=== PATIENT | female | born 1990 | race Hispanic/Latino ===

== ENCOUNTER → 2018-08-14 16:07 | Outpatient (CLI) | payer MEDICAID, SELFPAY ==
[2018-08-14 20:31] LABS: Chlamydia Trachomatis by PCR Negative (Negative); Neisserai gonorrhoeae by PCR Negative (Negative); Probe Check PASS; Sample Adequacy Control PASS; Specimen Processing Control PASS
[2018-08-14 21:26] LABS: Probe Check PASS; Sample Adequacy Control PASS; Specimen Processing Control PASS; Trichomonas Vag DNA by PCR Negative (Negative)
[2018-08-18 14:18] LABS: HPV Reflexed? NOT INDICATED
== END ==
PROVIDERS: Visit Provider Obstetrics & Gynecology
DX: Z12.4 Encounter for screening for malignant neoplasm of cervix (principal); Z11.3 Encounter for screening for infections with a predominantly sexual mode of transmission
CPT/HCPCS: 87491; 87591; 87661; 88175; G0145

== ENCOUNTER → 2018-08-17 13:52 | Outpatient (CLI) | payer MEDICAID, SELFPAY ==
--- NOTE | 2018-08-17 13:55 | US_ITS ---
STUDY: ULTRASOUND OF THE FEMALE PELVIS - COMPLETE REASON FOR EXAM: Female, 27 years old. Intermittent pelvic pain LMP: 08/08/2018 TECHNIQUE: Transabdominal and endovaginal imaging performed with endovaginal imaging needed for incomplete visualization of the endometrial complex. TECHNICAL QUALITY: Adequate. COMPARISON: None. FINDINGS: The uterus is anteverted and is in a midline position. The uterus measures 8.7 x 4.8 x 3.5 cm. Normal uterine cervix. The endometrium measures mm in thickness, and is . There is no demonstrated endometrial mass. There is no demonstrated myometrial mass. I.U.D. - The patient does not have an I.U.D. The right ovary is visualized. The right ovary measures 3.2 x 2.9 x 2.1 cm. A simple right ovarian cyst measures up to 2.1 cm without solid component. Small follicles are noted. There is no visualized right adnexal mass or complex lesion. There is normal arterial and normal venous vascularity. The left ovary is visualized. The left ovary measures 3.2 x 2.9 x 2.1 cm. Adjacent to the left ovary, there is a 3.0 x 2.8 x 1.6 cm nearly anechoic cyst without septations or solid component. No solid masses. There is normal arterial and normal venous vascularity. There is no fluid in the cul-de-sac. Visualized urinary bladder is unremarkable. Polycystic ovary disease: No. US/Pelvic (Non ) IMPRESSION: 1. Left adnexal cyst measuring up to 3.0 cm without significant complexity or solid component. No evidence of torsion. No pelvic free fluid. 2. 2.1 cm right ovarian small cyst versus dominant follicle. Electronically Signed: Baldemar Betancourt MD at 8:47 EDT , Service support ,
--- NOTE | 2018-08-17 14:09 | US_ITS ---
STUDY: ULTRASOUND OF THE FEMALE PELVIS - COMPLETE REASON FOR EXAM: Female, 27 years old. Intermittent pelvic pain LMP: 08/08/2018 TECHNIQUE: Transabdominal and endovaginal imaging performed with endovaginal imaging needed for incomplete visualization of the endometrial complex. TECHNICAL QUALITY: Adequate. COMPARISON: None. FINDINGS: The uterus is anteverted and is in a midline position. The uterus measures 8.7 x 4.8 x 3.5 cm. Normal uterine cervix. The endometrium measures mm in thickness, and is . There is no demonstrated endometrial mass. There is no demonstrated myometrial mass. I.U.D. - The patient does not have an I.U.D. The right ovary is visualized. The right ovary measures 3.2 x 2.9 x 2.1 cm. A simple right ovarian cyst measures up to 2.1 cm without solid component. Small follicles are noted. There is no visualized right adnexal mass or complex lesion. There is normal arterial and normal venous vascularity. The left ovary is visualized. The left ovary measures 3.2 x 2.9 x 2.1 cm. Adjacent to the left ovary, there is a 3.0 x 2.8 x 1.6 cm nearly anechoic cyst without septations or solid component. No solid masses. There is normal arterial and normal venous vascularity. There is no fluid in the cul-de-sac. Visualized urinary bladder is unremarkable. Polycystic ovary disease: No. US/Transvaginal Non- IMPRESSION: 1. Left adnexal cyst measuring up to 3.0 cm without significant complexity or solid component. No evidence of torsion. No pelvic free fluid. 2. 2.1 cm right ovarian small cyst versus dominant follicle. Electronically Signed: Baldemar Betancourt MD at 8:47 EDT , Service support ,
== END ==
PROVIDERS: Referring Provider Obstetrics & Gynecology; Visit Provider Obstetrics & Gynecology
DX: N83.202 Unspecified ovarian cyst, left side (principal)
CPT/HCPCS: 76830; 76856; 93976

== ENCOUNTER 2018-11-28 10:01 | Emergency (ER) | payer MEDICAID, SELFPAY ==
[2018-11-28 10:02] VITALS: BP 121/79; PULSE 80; RESP 18; TEMP 36.6; O2SAT 99; BMI 34.9
[2018-11-28 10:12] VITALS: TEMP 36.6
--- NOTE | 2018-11-28 10:14 | ED.VISSUMM ---
- ER Visit Summary Date of Service: 11/28/18 Chief Complaint: Urinary symptoms History of Present Illness: The patient is a 27 F G1, P1, Ab0 who presents with dysuria, frequency and urgency that started yesterday. She reports suprapubic discomfort and midline low back pain. She complains of subjective fever with chills. She denies nausea, vomiting or diarrhea. She has no other symptoms. She is presently on her menses. Physical Examination: Vital signs noted. She is not apparent distress. HEENT is grossly unremarkable. Heart is regular. She is in no respiratory distress. She has suprapubic discomfort to palpation. There is no CVA tenderness noted. Test Results: Urinalysis reveals leukoesterase and blood negative nitrites. Microscopic reveals 50-100 WBCs. No bacteria noted. Emergency Department Course and Treatment: Will obtain UA. Treatment Plan: Macrobid 100 mg twice daily times 5 days and Pyridium Disposition: Discharged home with prescription for Macrobid and Pyridium Impression: Acute nonhemorrhagic cystitis This note was generated with [employer] dictation software. It may contain incorrect words, spelling, and punctuation that were not noted in review of the chart prior to signing ED Disposition - Plan for ED Patient: Disposition: Home or Assisted Living Chief Complaint: Complaint Instructions: ED UTI Cystitis Female Prescriptions: Nitrofurantoin Macrocrystals [Macrobid] 100 mg PO Q12 #10 cap Phenazopyridine HCl [Pyridium] 200 mg PO TID #10 tab Referrals: Care Physician,No Primary [Primary Care Provider] - Amelie Kumar MD [STAFF PHYSICIAN] - 3-5 Days if not improving
[2018-11-28 11:33] LABS: Bacteria 0 SEEN /hpf (None Seen); Mucous, Urine 0 SEEN /hpf (<or=2+)
[2018-11-28 11:35] LABS: Color, Urine Yellow (Yellow); Glucose, Dipstick Normal (Normal); Ketone-Dipstick Negative (Negative); Leukocyte Esterase-Dipstick 500 /ul (Negative); Nitrite-Dipstick Negative (Negative); Occult Blood-Urine 25 /ul (Negative); Protein-Dipstick Negative (Negative); Specific Gravity, Urine 1.005 (1.002-1.030); Urine Bilirubin Dipstick Negative (Negative); Urine Clarity Clear (Clear); Urine Urobilinogen Normal (Normal)
[2018-11-28 11:43] LABS: Red Blood Cells-Urine 0-5 SEEN /hpf (0-5); Squamous Epithelial Cells - UA 0-5 SEEN /hpf (5-10); White Blood Cells 50-100 SEEN /hpf (0-5)
[2018-11-28] MEDS: Nitrofurantoin Macrocrystals 100 MG Capsule PO (12:39)
[2018-11-28] MEDS: Phenazopyridine 95 MG Tablet 190 MG PO (12:39)
[2018-11-28 12:44] VITALS: BP 96/74; PULSE 63; RESP 14
--- OUTSIDE RECORDS SUMMARY | 2019-01-30 13:37 | XMS RPT_ITS ---
:1990 Author Organization OHIP Care Team Providers Name Role Phone TEN CAVANAUGH Admitting Unavailable TEN CAVANAUGH Attending Unavailable AA UNKNOWN PCP, UNKNOWN Primary Care Unavailable MARISSA LEE) Attending Unavailable MARISSA LEE) Referring Unavailable MARISSA LEE) Attending Unavailable MARISSA LEE) Referring Unavailable PROVIDER, UNKNOWN Referring Unavailable No, PCP Primary Care Unavailable Alexis Peres Attending Unavailable PROVIDER, UNKNOWN Referring Unavailable No, PCP Primary Care Unavailable Fan Cabrera Attending Unavailable Tod Tapia Attending Unavailable PROVIDER, UNKNOWN Referring Unavailable No, PCP Primary Care Unavailable PROVIDER, UNKNOWN Referring Unavailable No, PCP Primary Care Unavailable AUR[facility]A STRAUSS Attending Unavailable PROVIDER, UNKNOWN Referring Unavailable No, PCP Primary Care Unavailable PROVIDER, UNKNOWN Attending Unavailable PROVIDER, UNKNOWN Referring Unavailable No, PCP Primary Care Unavailable Dominic Miranda Attending Unavailable Primay Care Physicia, No Primary Care Unavailable Wilkerson, Víctor Attending Unavailable Jean-Baptiste-Chavo, Summer Attending Unavailable Primay Care Physicia, No Primary Care Unavailable Jean-Baptiste-Chavo, Summer Attending Unavailable Jean-Baptiste-Chavo, Summer Referring Unavailable Primay Care Physicia, No Primary Care Unavailable PROBLEMS PROBLEMS DATE TYPE CONDITION / CODE ATTENDING STATUS SOURCE 08/17/2018 Unknown N83.202 - José Active [facility] Unspecified ovarian [facility] cyst, left side / Hospital N83.202(ICD-10) Repository 08/14/2018 Unknown Z12.4 - Encounter José Active [employer] for screening for [facility] malignant neoplasm Hospital of cervix / Repository Z12.4(ICD-10) 08/14/2018 Unknown Z11.3 - Encounter José Active [facility] for screening for [facility] infections with a Hospital predominantly sexual Repository mode of transmission / Z11.3(ICD-10) 07/15/2018 Admitting Anxiety disorder, Dominic Miranda [facility] Diagnosis unspecified / System F41.9(ICD-10) Repository 07/15/2018 Admitting Major depressive Dominic Miranda [facility] Diagnosis disorder, single System episode, unspecified Repository / F32.9(ICD-10) 07/15/2018 Admitting Unspecified mood Dominic Miranda Active [facility] Diagnosis [affective] disorder System / F39(ICD-10) Repository 07/15/2018 Admitting Nicotine dependence, Dominic Miranda Active [facility] Diagnosis cigarettes, System uncomplicated / Repository F17.210(ICD-10) 07/15/2018 Admitting Acquired absence of Dominic Miranda [facility] Diagnosis other specified System parts of digestive Repository tract / Z90.49(ICD-10) 07/15/2018 Admitting Suicidal ideations / Dominic Miranda Active [facility] Diagnosis R45.851(ICD-10) System Repository 03/29/2018 Admitting Nicotine dependence, MATEOSDARLEEN, Active [facility] Diagnosis unspecified, [facility] uncomplicated / Repository F17.200(ICD-10) 03/29/2018 Admitting Laceration w/o ELIZABETHOSKY, Active [facility] Diagnosis foreign body of [facility] System right forearm, init Repository encntr / S51.811A(ICD-10) 03/29/2018 Admitting halfway (current) MATEOSKY, [facility] Diagnosis use of non-steroidal [facility] System non-inflam (NSAID) / Repository Z79.1(ICD-10) 02/08/2018 Active Major depressive NA Active [place] disorder, recurrent [facility] severe without [place] psychotic features / Repository F33.2(ICD-10) 02/08/2018 Active Generalized anxiety NA Active [place] disorder / [facility] F41.1(ICD-10) [place] Repository 01/17/2018 Admitting Unspecified Deborah, Active [facility] Diagnosis abdominal pain / [facility] R10.9(ICD-10) Repository 01/17/2018 Admitting Periumbilical pain / Deborah, Active [facility] Diagnosis R10.33(ICD-10) [facility] Repository 01/17/2018 Admitting Urinary tract Deborah, Active [facility] Diagnosis infection, site not [facility] specified / Repository N39.0(ICD-10) 01/17/2018 Admitting Unspecified ovarian Deborah, Active [facility] Diagnosis cyst, left side / [facility] N83.202(ICD-10) Repository 01/16/2018 Admitting Strain of muscle, Alexis Peres Active [facility] Diagnosis fascia and tendon of System lower back, init / Repository S39.012A(ICD-10) 01/16/2018 Admitting Overexertion from Alexis Peres Active [facility] Diagnosis prolonged static or System awkward postures, Repository init / X50.1XXA(ICD-10) 01/16/2018 Admitting Dorsalgia, Alexis Peres Active [facility] Diagnosis unspecified / System M54.9(ICD-10) Repository 01/18/2018 Active LOW BACK PAIN / BLANDA, Active [facility] M54.5(ICD-10) [facility] Repository 01/18/2018 Principle SACROCOCCYGEAL BLANDA, Active [facility] Diagnosis DISORDERS [facility] / [facility] M53.3(ICD-10) Repository PROCEDURES PROCEDURES No Procedure Records FoundRESULTS RESULTS EMERGENCY DEPARTMENT Observed: 11/28/2018 Status: F Source: [place] SUMMARY 12:10 PM [facility] REPOSITORY [facility] Medical Records Department [address] [place] [address] Emergency Department Summary 11/28/18 1014 MR#: [id number] Acct: [id number] Name: LOIS LA Rep #: [id number] : 1990 27 From: Víctor Wilkerson MD PCP: Kobi Physician, No Primary Status: REG ER - ER Visit Summary Date of Service: 11/28/18 Chief Complaint: Urinary symptoms History of Present Illness: The patient is a 27 F G1, P1, Ab0 who presents with dysuria, frequency and urgency that started yesterday. She reports suprapubic discomfort and midline low back pain. She complains of subjective fever with chills. She denies nausea, vomiting or diarrhea. She has no other symptoms. She is presently on her menses. Physical Examination: Vital signs noted. She is not apparent distress. HEENT is grossly unremarkable. Heart is regular. She is in no respiratory distress. She has suprapubic discomfort to palpation. There is no CVA tenderness noted. Test Results: Urinalysis reveals leukoesterase and blood negative nitrites. Microscopic reveals 50-100 WBCs. No bacteria noted. Emergency Department Course and Treatment: Will obtain UA. Treatment Plan: Macrobid 100 mg twice daily times 5 days and Pyridium Disposition: Discharged home with prescription for Macrobid and Pyridium Impression: Acute nonhemorrhagic cystitis This note was generated with [employer]Matrix dictation software. It may contain incorrect words, spelling, and punctuation that were not noted in review of the chart prior to signing ED Disposition - Plan for ED Patient: Disposition: Home or Assisted Living Chief Complaint: Complaint Instructions: ED UTI Cystitis Female Prescriptions: Nitrofurantoin Macrocrystals [Macrobid] 100 mg PO Q12 #10 cap Phenazopyridine HCl [Pyridium] 200 mg PO TID #10 tab Referrals: Care Physician,No Primary [Primary Care Provider] - Amelie Kumar MD [STAFF PHYSICIAN] - 3-5 Days if not improving What to do if you have Problems For any increased pain, shortness of breath, bleeding, nausea or vomiting, chest pain, or any unexpected problems, contact your Primary Care Provider. Call [facility] ([phone]) or report to the closest Emergency Room. Call 911 if necessary. 11/28/18 1210 <Electronically signed by Víctor Wilkerson MD> Date Víctor Wilkerson MD Cosigner Signature (If Indicated): Date CC: No Primary Care Physician; Amelie Kumar MD URINALYSIS, COMPLETE Collected: 11/28/2018 Status: F Source: LANE 11:25 AM [facility] REPOSITORY Order Comment: Order Date: 11/28/18 How was Urine Obtained? CLEAN CATCH TYPE CODE TESTS RESULT OUT OF RANGE REFERENCE UNITS LAB L400.3000 Yellow COLOR Normal Yellow LAB L400.3050 Clear Normal CLARITY Clear LAB L400.3200 Normal mg/dl Normal GLUCOSE, UR Normal LAB L400.3300 Negative mg/dL Normal BILIRUBIN URINE Negative LAB L400.3400 Negative mg/dl Normal KETONE UR Negative LAB L400.3465 1.002-1.030 Normal SP.GR. DIPSTX 1.005 LAB L400.3550 5.0 - 8.0 pH UR Normal 7.0 LAB L400.3600 Negative mg/dl PROT Normal DIPSTX Negative LAB L400.3700 Normal mg/dl Normal UROBILI Normal LAB L400.3750 Negative Normal NITRITE UR Negative LAB L400.3780 Negative /ul High 25 OCCULT BLOOD-UR LAB L400.3800 Negative /ul High LEUK ESTERASE 500 LAB L400.4050 0-5 /hpf WBC Normal 50-100 SEEN LAB L400.4100 0-5 /hpf Normal RBC-UA 0-5 SEEN LAB L400.4150 5-10 /hpf SQUAM Normal EPI 0-5 SEEN LAB L400.4300 None Seen /hpf 0 Normal BACTERIA SEEN LAB L400.4350 <or=2+ /hpf 0 Normal MUCUS, URINE SEEN Performed By: #### L400.0001 #### [facility] [address] [place], [address] TRANSVAGINAL Observed: 08/17/2018 Status: F Source: LANE NON- 2:09 PM [facility] REPOSITORY [facility] Imaging Services [address] [place] [address] Transvaginal Non- MR#: [id number] Acct: [id number] Name: LOIS LA Rep #: [id number] : 1990 F 27 From: Baldemar Betancourt MD PCP: Care Physician, No Primary Status: REG CLI Study: Transvaginal Non- Date of Exam: 08/17/18 Exam# [id number] Ordering Dr: Amelie Mcghee MD ADDENDUM by Baldemar Betancourt MD on 08/25/18 at 0758 ADDENDUM The endometrium measures 8 mm in thickness, and is hyperechoic. Electronically Signed: Baldemar Betancourt MD at 7:58 EDT , Service support , 08/25/18 0758 Date cc: No Primary Care Physician; Amelie Kumar MD * Signed ADDENDUM by Baldemar Betancourt MD on 08/25/18 at 0758 US/Transvaginal Non- 08/25/18 0805 Date cc: No Primary Care Physician; Amelie Kumar MD * Signed STUDY: ULTRASOUND OF THE FEMALE PELVIS - COMPLETE REASON FOR EXAM: Female, 27 years old. Intermittent pelvic pain LMP: 08/08/2018 TECHNIQUE: Transabdominal and endovaginal imaging performed with endovaginal imaging needed for incomplete visualization of the endometrial complex. TECHNICAL QUALITY: Adequate. COMPARISON: None. FINDINGS: The uterus is anteverted and is in a midline position. The uterus measures 8.7 x 4.8 x 3.5 cm. Normal uterine cervix. The endometrium measures mm in thickness, and is . There is no demonstrated endometrial mass. There is no demonstrated myometrial mass. I.U.D. - The patient does not have an I.U.D. The right ovary is visualized. The right ovary measures 3.2 x 2.9 x 2.1 cm. A simple right ovarian cyst measures up to 2.1 cm without solid component. Small follicles are noted. There is no visualized right adnexal mass or complex lesion. There is normal arterial and normal venous vascularity. The left ovary is visualized. The left ovary measures 3.2 x 2.9 x 2.1 cm. Adjacent to the left ovary, there is a 3.0 x 2.8 x 1.6 cm nearly anechoic cyst without septations or solid component. No solid masses. There is normal arterial and normal venous vascularity. There is no fluid in the cul-de-sac. Visualized urinary bladder is unremarkable. Polycystic ovary disease: No. US/Transvaginal Non- IMPRESSION: 1. Left adnexal cyst measuring up to 3.0 cm without significant complexity or solid component. No evidence of torsion. No pelvic free fluid. 2. 2.1 cm right ovarian small cyst versus dominant follicle. Electronically Signed: Baldemar Betancourt MD at 8:47 EDT , Service support , CC: No Primary Care Physician; Amelie Kumar MD Bus Escort: Signed PELVIC (NON ) Observed: 08/17/2018 Status: F Source: LANE 1:55 PM [facility] REPOSITORY [facility] [place] [address] Pelvic (Non ) MR#: [id number] Acct: [id number] Name: LOIS LA Rep #: [id number] : 1990 F 27 From: Baldemar Betancourt MD PCP: Care Physician, No Primary Status: REG CLI Study: Pelvic (Non ) Date of Exam: 08/17/18 Exam# [id number] Ordering Dr: Amelie Mcghee MD ADDENDUM by Baldemar Betancourt MD on 08/25/18 at 0757 ADDENDUM The endometrium measures 8 mm in thickness, and is hyperechoic. Electronically Signed: Baldemar Betancourt MD at 7:58 EDT , Service support , 08/25/18 0758 Date cc: No Primary Care Physician; Amelie Kumar MD * Signed ADDENDUM by Baldemar Betancourt MD on 08/25/18 at 0758 US/Pelvic (Non ) 08/25/18 08 Date cc: No Primary Care Physician; Amelie Kumar MD * Signed STUDY: ULTRASOUND OF THE FEMALE PELVIS - COMPLETE REASON FOR EXAM: Female, 27 years old. Intermittent pelvic pain LMP: 08/08/2018 TECHNIQUE: Transabdominal and endovaginal imaging performed with endovaginal imaging needed for incomplete visualization of the endometrial complex. TECHNICAL QUALITY: Adequate. COMPARISON: None. FINDINGS: The uterus is anteverted and is in a midline position. The uterus measures 8.7 x 4.8 x 3.5 cm. Normal uterine cervix. The endometrium measures mm in thickness, and is . There is no demonstrated endometrial mass. There is no demonstrated myometrial mass. I.U.D. - The patient does not have an I.U.D. The right ovary is visualized. The right ovary measures 3.2 x 2.9 x 2.1 cm. A simple right ovarian cyst measures up to 2.1 cm without solid component. Small follicles are noted. There is no visualized right adnexal mass or complex lesion. There is normal arterial and normal venous vascularity. The left ovary is visualized. The left ovary measures 3.2 x 2.9 x 2.1 cm. Adjacent to the left ovary, there is a 3.0 x 2.8 x 1.6 cm nearly anechoic cyst without septations or solid component. No solid masses. There is normal arterial and normal venous vascularity. There is no fluid in the cul-de-sac. Visualized urinary bladder is unremarkable. Polycystic ovary disease: No. US/Pelvic (Non ) IMPRESSION: 1. Left adnexal cyst measuring up to 3.0 cm without significant complexity or solid component. No evidence of torsion. No pelvic free fluid. 2. 2.1 cm right ovarian small cyst versus dominant follicle. Electronically Signed: Baldemar Betancourt MD at 8:47 EDT , Service support , CC: No Primary Care Physician; Amelie Kumar MD Bus Escort: Signed CT/NG [facility] BY PCR Collected: 08/14/2018 Status: F Source: LANE 3:00 PM [facility] REPOSITORY TYPE CODE TESTS RESULT OUT OF RANGE REFERENCE UNITS LAB L8200.2100 Negative Normal Chlam Negative Trac PCR LAB L8200.2200 Negative Normal NG by Negative PCR Performed By: #### L8200.2000, L8200.3000 #### [facility] [address] [place], [address] TRICHOMONAS VAGINALIS Collected: 08/14/2018 Status: F Source: LANE WCH/PCR 3:00 PM [facility] REPOSITORY TYPE CODE TESTS RESULT OUT OF RANGE REFERENCE UNITS LAB L8200.3100 Negative Normal TV RESULT Negative Performed By: #### L8200.2000, L8200.3000 #### [facility] [address] [place], [place], [address] PAP I-G W/RFX Collected: 08/14/2018 Status: F Source: LANE HRHPV-APTIMA 3:00 PM [facility] REPOSITORY Order Comment: CYTOLOGY INFORMATION: - CLINICAL INFORMATION: - DATE LMP/MENOPAUSE: 08/08/18 LMP - COLLECTION VIAL: Thin Prep Vial - SANITATION ASSOCIATE SOURCE: CERVICAL/ENDOCERVICAL - COLLECTION TECHNIQUE: BRUSH/SPATULA Specimen Comment: [id number] Specimen Comment: Source.............Cervix;Endocervix Specimen Comment: LMP / Prev Treat...[id number]=[id number] Specimen Comment: No. of containers..01 ThinPrep Vial TYPE CODE TESTS RESULT OUT OF RANGE REFERENCE UNITS LAB L7400.0800 . Normal DIAGN Comment Result Comment: NEGATIVE FOR INTRAEPITHELIAL LESION AND MALIGNANCY. LAB L7400.0900 . Normal ADEQ Comment Result Comment: Satisfactory for evaluation. Endocervical and/or squamous metaplastic cells (endocervical component) are present. LAB L7400.1400 . Normal PERFORM Comment Result Comment: Georgiana Lucio, Software Applications Engineer (ASCP) LAB L7400.2575 . Normal TEST METHOD Comment Result Comment: This liquid based ThinPrep(R) pap test was screened with the use of an image guided system. LAB L7400.2600 . Normal . COMM LAB L7400.2700 . Normal PAPSMR Comment Result Comment: The Pap smear is a screening test designed to aid in the detection of premalignant and malignant conditions of the uterine cervix. It is not a diagnostic procedure and should not be used as the sole means of detecting cervical cancer. Both false-positive and false-negative reports do occur. LAB L7400.2800 . Normal HPV RFLX Comment Result Comment: The HPV DNA reflex criteria were not met with this specimen result therefore, no HPV testing was performed. Performed at: - [facility] [id number] Deputy Building Guard: Joan Olivera MD, Phone: [phone] Performed By: #### L7400.0353 #### [facility] (refer to report for specific site) refer to report for address and phone number HEMOGRAM W/ AUTODIFF Collected: 07/15/2018 Status: F Source: [email or web address] 10:32 PM SYSTEM REPOSITORY TYPE CODE TESTS RESULT OUT OF REFERENCE UNITS RANGE LAB IWBC 3.6-10.7 10*3/uL WBC Normal 8.1 LAB RBC 3.80-5.20 10*6/uL RBC Normal 5.04 LAB HGB 11.7-16.0 g/dL Hemoglobin Normal 12.5 LAB HCT 35.0-47.0 % Hematocrit Normal 38.7 LAB MCV 79.0-98.0 fL Low MCV 76.9 LAB MCH 26.0-34.0 pg Low MCH 24.9 LAB MCHC 32.0-36.0 % MCHC Normal 32.4 LAB RDW 11.5-14.5 % RDW High 15.4 LAB PLT 140-440 10*3/uL Platelet Normal 220 LAB MPV 7.4-10.4 fL MPV Normal 10.0 LAB GRAN% 40.0-80.0 % Granulocytes Normal 78.0 LAB LYMP% 20.0-40.0 % Low Lymphocytes 12.5 LAB MONO% 2.0-10.0 % Monocytes Normal 7.6 LAB EOS% 1.0-6.0 % Eosinophils Normal 1.3 LAB BAS% 0.0-2.0 % Basophils Normal 0.6 LAB ANC 1.8-7.0 10*3/uL Abs Normal Neutrophile Cnt 6.3 LAB ALC 1.0-4.3 10*3/uL Abs Lymph Cnt Normal 1.0 LAB AMC 0.0-0.8 10*3/uL Abs Monocyte Normal Cnt 0.6 LAB AEC 0.0-0.5 10*3/uL Abs Eosin Cnt Normal 0.1 LAB ABC 0.0-0.2 10*3/uL Abs Baso Cnt Normal 0.1 Performed By: #### HEMDF, CMP3, ETOH4 #### [facility] [address] [place] [phone] COMP METABOLIC PANEL Collected: 07/15/2018 Status: F Source: [email or web address] 10:32 PM SYSTEM REPOSITORY TYPE CODE TESTS RESULT OUT OF RANGE REFERENCE UNITS LAB NA3 137-145 mmol/L Sodium Normal 143 LAB K3 3.5-5.1 mmol/L Low Potassium 3.4 LAB CL3 98-107 mmol/L Chloride Normal 106 LAB CO23 22-30 mmol/L High Carbon Dioxide 32 LAB ANIN3 NA Anion Gap 5 LAB GLUC3 70-100 mg/dL Glucose Normal 97 LAB BUN3 7-20 mg/dL Urea Normal Nitrogen 9 LAB CRET3 0.52-1.25 mg/dL Normal Creatinine 0.63 LAB GF3BR >60 mL/min eGFR > 60.0 LAB GF3WR >60 mL/min eGFR OTHER > 60.0 Result Comment: Source- MDRD equation with creatinine calibration to IDMS(NKDEP) eGFR not recommended for drug dose adjustment LAB CA3 8.4-10.4 mg/dL Calcium Normal 8.9 LAB ALB3 3.5-5.0 g/dL Albumin, Serum Normal 4.1 LAB TP3 6.3-8.2 g/dL Total Protein Normal 6.8 LAB BILT3 0.2-1.3 mg/dL Low Bilirubin,Total 0.1 LAB ALKP3 38-126 U/L Alkaline Normal Phosphatase 72 LAB ALT3 13-69 U/L ALT (SGPT) Normal 23 LAB AST3 15-46 U/L AST (SGOT) Normal 24 Performed By: #### HEMDF, CMP3, ETOH4 #### [facility] [address] [place] [phone] ETHANOL SERUM/PLASMA Collected: 07/15/2018 Status: F Source: [email or web address] 10:32 PM SYSTEM REPOSITORY TYPE CODE TESTS RESULT OUT OF RANGE REFERENCE UNITS LAB ETOH3 0.000-0.010 g/dL Normal < 0.010 Ethanol-Seru m/Plasma Result Comment: NOTE: This result is for medical treatment only. Analysis performed using non-forensic procedures. Performed By: #### HEMDF, CMP3, ETOH4 #### [facility] [address] [place] [address] HCG,URINE QUAL Collected: 07/15/2018 Status: F Source: [email or web address] 10:32 PM SYSTEM REPOSITORY TYPE CODE TESTS RESULT OUT OF REFERENCE UNITS RANGE LAB HCGUR Negative NA Negative HCG,Urine Qual Result Comment: is the most common reason for HCG in urine, although choriocarcinoma, hydatidiform mole, and certain nontropho- blastic malignancies also result in detectable urinary HCG levels. Sensitivity = 20mIU/mL. Performed By: #### HCGUR, DRGA4 #### [facility] [address] [place] [phone] DRUGS OF ABUSE Collected: 07/15/2018 Status: F Source: [email or web address] 10:32 PM SYSTEM REPOSITORY TYPE CODE TESTS RESULT OUT OF REFERENCE UNITS RANGE LAB AMP3 NA Amphetamines, Ur Negative LAB BARB3 NA Barbiturates, Ur Negative LAB BENZ3 NA Benzodiazepines, Negative Ur LAB COC3 NA Cocaine, Ur Negative LAB METH3 NA Methadone, Ur Negative LAB OPI3 NA Opiates, Ur Negative LAB OXY3 NA Oxycodone/Oxymorph Negative ine,Ur LAB PCP3 NA Phencyclidine (PCP), Ur Negative Result Comment: The expected value for all of the drugs listed above is Negative. The following drugs or drug groups have been screened for by Immunoassay at the following thresholds: Amphetamine class (1000 ng/mL), Barbiturates (200 ng/mL), Benzodiazepines (200 ng/mL), Cocaine (300 ng/mL), Methadone (300 ng/mL), Opiates (300 ng/mL), Oxycodone (100 ng/mL), and PCP (25 ng/mL). NOTE: These results are for medical treatment only. Analysis performed using non-forensic procedures. Performed By: #### HCGUR, DRGA4 #### [facility] [address] [phone] LIPID PANEL Collected: 04/02/2018 Status: F Source: [email or web address] 5:58 AM SYSTEM REPOSITORY TYPE CODE TESTS RESULT OUT OF REFERENCE UNITS RANGE LAB 3CHOL < 200 mg/dL Cholesterol Normal 127 LAB 3TRIG <150 mg/dL Triglyceride Normal 83 LAB HDLC 40-60 mg/dL HDL Normal Cholesterol 40 LAB LDL4 <100 mg/dL Low Density Normal Lipoprotein 70 LAB CHLHD NA Chol/HDL 3 Result Comment: Ref Range: < 3 Low Risk for CHD 3-6 Mod Risk for CHD > 6 High Risk for CHD Performed By: #### KIMMIED2, HA1C2 #### [facility] [address] [place] [address] HEMOGLOBIN A1C Collected: 04/02/2018 Status: F Source: [email or web address] 5:58 AM SYSTEM REPOSITORY TYPE CODE TESTS RESULT OUT OF RANGE REFERENCE UNITS LAB A1C2 4.0-5.7 % Normal Hemoglobin A1C 5.3 Result Comment: --HgbA1C levels may not be accurate in patients who have renal disease, received recent blood transfusions, are anemic, or who have dyshemoglobinemia. LAB EAG2 mg/dL Estimated Avg Glucose 105 Performed By: #### KIMMIED2, HA1C2 #### [facility] [address] [phone] HEMOGRAM W/ AUTODIFF Collected: 04/01/2018 Status: F Source: [email or web address] 10:46 AM SYSTEM REPOSITORY TYPE CODE TESTS RESULT OUT OF REFERENCE UNITS RANGE LAB IWBC 3.6-10.7 10*3/uL WBC Normal 5.1 LAB RBC 3.80-5.20 10*6/uL RBC Normal 4.64 LAB HGB 11.7-16.0 g/dL Hemoglobin Normal 12.0 LAB HCT 35.0-47.0 % Hematocrit Normal 36.7 LAB MCV 79.0-98.0 fL MCV Normal 79.2 LAB MCH 26.0-34.0 pg Low MCH 25.8 LAB MCHC 32.0-36.0 % MCHC Normal 32.6 LAB RDW 11.5-14.5 % RDW High 15.3 LAB PLT 140-440 10*3/uL Platelet Normal 212 LAB MPV 7.4-10.4 fL MPV Normal 10.4 LAB GRAN% 40.0-80.0 % Granulocytes Normal 59.5 LAB LYMP% 20.0-40.0 % Lymphocytes Normal 25.7 LAB MONO% 2.0-10.0 % Monocytes High 11.8 LAB EOS% 1.0-6.0 % Eosinophils Normal 1.6 LAB BAS% 0.0-2.0 % Basophils Normal 1.4 LAB ANC 1.8-7.0 10*3/uL Abs Normal Neutrophile Cnt 3.0 LAB ALC 1.0-4.3 10*3/uL Abs Lymph Cnt Normal 1.3 LAB AMC 0.0-0.8 10*3/uL Abs Monocyte Normal Cnt 0.6 LAB AEC 0.0-0.5 10*3/uL Abs Eosin Cnt Normal 0.1 LAB ABC 0.0-0.2 10*3/uL Abs Baso Cnt Normal 0.1 Performed By: #### HEMDF, BMP3, ETOH4 #### [facility] [address] [place] [phone] BASIC METABOLIC PANEL Collected: 04/01/2018 Status: F Source: [email or web address] 10:46 AM SYSTEM REPOSITORY TYPE CODE TESTS RESULT OUT OF RANGE REFERENCE UNITS LAB NA3 137-145 mmol/L High Sodium 147 LAB K3 3.5-5.1 mmol/L Low Potassium 3.4 LAB CL3 98-107 mmol/L High Chloride 109 LAB CO23 22-30 mmol/L Carbon Normal Dioxide 25 LAB ANIN3 NA Anion Gap 14 LAB GLUC3 70-100 mg/dL Glucose Normal 84 LAB BUN3 7-20 mg/dL Low Urea Nitrogen 6 LAB CRET3 0.52-1.25 mg/dL Normal Creatinine 0.56 LAB GF3BR >60 mL/min eGFR > 60.0 LAB GF3WR >60 mL/min eGFR OTHER > 60.0 Result Comment: Source- MDRD equation with creatinine calibration to IDMS(NKDEP) eGFR not recommended for drug dose adjustment LAB CA3 8.4-10.2 mg/dL Normal Calcium 8.7 Performed By: #### HEMDF, BMP3, ETOH4 #### [facility] [address] [place] [phone] ETHANOL SERUM/PLASMA Collected: 04/01/2018 Status: F Source: [email or web address] 10:46 AM SYSTEM REPOSITORY TYPE CODE TESTS RESULT OUT OF RANGE REFERENCE UNITS LAB ETOH3 0.000-0.010 g/dL High 0.048 Ethanol-Seru m/Plasma Result Comment: NOTE: This result is for medical treatment only. Analysis performed using non-forensic procedures. Performed By: #### HEMDF, BMP3, ETOH4 #### [facility] [address] [place] [address] HCG,URINE QUAL Collected: 04/01/2018 Status: F Source: [email or web address] 10:46 AM SYSTEM REPOSITORY TYPE CODE TESTS RESULT OUT OF REFERENCE UNITS RANGE LAB HCGUR Negative NA Negative HCG,Urine Qual Result Comment: is the most common reason for HCG in urine, although choriocarcinoma, hydatidiform mole, and certain nontropho- blastic malignancies also result in detectable urinary HCG levels. Sensitivity = 20mIU/mL. Performed By: #### HCGUR, UAMAC, DRGA4, THC4, UAMIC #### [facility] [address] [place] [address] URINALYSIS,MACRO Collected: 04/01/2018 Status: F Source: [email or web address] 10:46 AM SYSTEM REPOSITORY TYPE CODE TESTS RESULT OUT OF REFERENCE UNITS RANGE LAB APPUR Clear NA Appearance clear LAB COLUR Lt. Yellow NA Color yellow LAB USG 1.005-1.030 NA Specific Normal [place],Urine 1.015 LAB UPH 5.0-8.0 NA pH,Urine Normal 5.0 LAB ULUK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
== END 2018-11-28 12:44 | disposition home or self-care (01) ==
PROVIDERS: Emergency Provider Emergency Medicine
DX: N30.00 Acute cystitis without hematuria (principal); E66.9 Obesity, unspecified; Z68.34 Body mass index [BMI] 34.0-34.9, adult
CPT/HCPCS: 81001; 99282

== ENCOUNTER → 2022-10-28 | Outpatient (CLI) | payer MEDICAID, SELFPAY ==
[2022-10-28 16:19] LABS: Absolute Lymphocyte Count 1.42 X10^3/uL (0.83-4.51); Absolute Neutrophil Count 6.1 X10^3/uL (2.0-7.7); Basophil# 0.03 X10^3/uL; Basophil% 0.4 % (0-1); Eosinophil# 0.08 X10^3/uL; Hematocrit 32.5 % (37-47); Hemoglobin 10.2 g/dL (12.0-15.0); Lymphocyte # 1.42 X10^3/ul (0.83-4.51); Mean Corp Hgb Conc 31.4 g/dL (32-36); Mean Corpuscular Hgb 25.1 pg (27.0-32.0); Monocyte# 0.63 X10^3/uL; Monocyte% 7.6 % (0-10); NRBC Flagged by Analyzer 0 % (0-5); Neutrophil # 6.13 X10^3/uL (2.7-7.7); Neutrophil % 73.5 % (47-70); Platelet Count 228 K/mm3 (150-450); RBC Distribution Width CV 12.5 % (11.6-14.6); Red Blood Count 4.06 M/mm3 (4.2-5.4); White Blood Count 8.3 K/mm3 (4.4-11.0)
[2022-10-28 17:17] LABS: HIV - WCH Non-Reactive (Nonreactive); Hepatitis B Surface Antigen Non-Reactive (Nonreactive); Hepatitis C Antibody Non-Reactive (Nonreactive); Rubella IgG Reactive (Nonreactive); Syphilis Antibodies Non-reactive
[2022-10-30 20:19] LABS: V-Zoster IgG (Immunity) 524 index (Immune >165)
== END | disposition home or self-care (01) ==
PROVIDERS: Visit Provider Obstetrics & Gynecology
DX: Z34.81 Encounter for supervision of other normal pregnancy, first trimester (principal)
CPT/HCPCS: 36415; 85025; 86703; 86762; 86780; 86787; 86803; 87086; 87088; 87340

== ENCOUNTER → 2022-11-12 | Outpatient (CLI) | payer MEDICAID, SELFPAY ==
[2022-11-12 10:23] LABS: Glucose Challenge Gest 1H 50g 164 mg/dL (70-140)
== END | disposition home or self-care (01) ==
LOC: WOBLAB 09:56
PROVIDERS: Visit Provider Obstetrics & Gynecology
DX: Z34.83 Encounter for supervision of other normal pregnancy, third trimester (principal)
CPT/HCPCS: 36415; 82950

== ENCOUNTER → 2022-11-19 | Outpatient (CLI) | payer MEDICAID, SELFPAY ==
[2022-11-19 09:40] LABS: Glucose GTT-Gestation. Fasting 79 mg/dL (<105)
[2022-11-19 10:19] LABS: Glucose GTT-Gestational 1 Hr 182 mg/dL (<190)
[2022-11-19 11:34] LABS: Glucose GTT-Gestational 2 Hr 145 mg/dL (<165)
[2022-11-19 13:02] LABS: Glucose GTT-Gestational 3 Hr 69 L (<145)
== END | disposition home or self-care (01) ==
LOC: WOBLAB 08:36
PROVIDERS: Visit Provider Obstetrics & Gynecology
DX: O24.912 Unspecified diabetes mellitus in pregnancy, second trimester (principal)
CPT/HCPCS: 36415; 82951; 82952

== ENCOUNTER → 2022-12-03 | Outpatient (CLI) | payer MEDICAID, SELFPAY ==
[2022-12-03 11:26] LABS: Absolute Lymphocyte Count 1.16 X10^3/uL (0.83-4.51); Absolute Neutrophil Count 4.1 X10^3/uL (2.0-7.7); Basophil# 0.04 X10^3/uL; Basophil% 0.7 % (0-1); Eosinophil# 0.05 X10^3/uL; Eosinophils% 0.8 % (0-5); Hemoglobin 10.3 g/dL (12.0-15.0); Lymphocyte # 1.16 X10^3/ul (0.83-4.51); Lymphocyte % 19.7 % (19-41); Mean Corp Hgb Conc 30.3 g/dL (32-36); Mean Corpuscular Hgb 23.3 pg (27.0-32.0); Mean Corpuscular Volume 76.9 fL (81-99); Mean Platelet Vol. 12.8 fl (6.2-12.0); Monocyte% 8.5 % (0-10); NRBC Flagged by Analyzer 0 % (0-5); Neutrophil # 4.12 X10^3/uL (2.7-7.7); Neutrophil % 69.8 % (47-70); Platelet Count 213 K/mm3 (150-450); RBC Distribution Width CV 13.6 % (11.6-14.6); Red Blood Count 4.42 M/mm3 (4.2-5.4); White Blood Count 5.9 K/mm3 (4.4-11.0)
[2022-12-03 11:58] LABS: Syphilis Antibodies Non-reactive
== END | disposition home or self-care (01) ==
LOC: WOBLAB 10:30
PROVIDERS: Visit Provider Obstetrics & Gynecology
DX: Z34.83 Encounter for supervision of other normal pregnancy, third trimester (principal); Z36.85 Encounter for antenatal screening for Streptococcus B
CPT/HCPCS: 36415; 85025; 86780; 87081

== ENCOUNTER 2022-12-18 21:48 | Inpatient (IN) | payer MEDICAID, SELFPAY ==
[2022-12-18 19:20] VITALS: BMI 38.5
[2022-12-18 19:29] VITALS: TEMP 36.5
[2022-12-18 19:30] VITALS: O2SAT 98
[2022-12-18 19:31] VITALS: BP 127/61; PULSE 73
[2022-12-18 22:15] VITALS: TEMP 36.2
--- NOTE | 2022-12-18 23:13 | PCM.HP.BLA ---
History and Physical Date of Admission: 12/18/22 Chief complaint: Contractions History of present illness: 31-year-old G2, P1 at 38 weeks and 2 days with BERT 12/30/2022 arrives with cramping and contractions. Denies headache, vision changes, chest pain, shortness of breath, nausea vomit, right upper quadrant pain. Patient states good movement. Obstetric history: G1: 41-week 7 pound 2 ounce female G2: Current Past medical history: None Medications: None Allergies: No known drug allergies Past surgical history: Cholecystectomy Family history: Denies history DVT or PE Social history: 1 pack/day smoker, denies alcohol or drug use Review of systems: Besides above pertinent positives a full review of systems was performed and found to be negative Physical exam: Vitals: Blood pressure 127/61 pulse 73 General: Mild distress with contractions HEENT: Normocephalic atraumatic no cervical lymphadenopathy Cardiac/respiratory: No use accessory muscles, nonlabored breathing Abdomen: Overall soft, nontender, gravid Pelvic exam: Cervical exam 5-6/60/-3 Extremities: No peripheral edema normal peripheral pulses Psych: Normal affect normal demeanor nonpressured speech Labs: Pending Bedside ultrasound: Cephalic Assessment plan: 31-year-old G2, P1 at 38 weeks and 2 days arrives with labor Admit labor and delivery CEFM GBS negative Routine orders
[2022-12-18] MEDS: Lactated Ringers 1,000 ML 50 ML IV (23:48)
[2022-12-18] MEDS: LACTATED RINGERS 500 ML 999 ML IV (23:49)
[2022-12-18 23:58] LABS: Absolute Lymphocyte Count 2.58 X10^3/uL (0.83-4.51); Basophil# 0.04 X10^3/uL; Basophil% 0.4 % (0-1); Eosinophil# 0.06 X10^3/uL; Eosinophils% 0.6 % (0-5); Hematocrit 35.8 % (37-47); Hemoglobin 10.7 g/dL (12.0-15.0); Lymphocyte # 2.58 X10^3/ul (0.83-4.51); Lymphocyte % 24.5 % (19-41); Mean Corp Hgb Conc 29.9 g/dL (32-36); Mean Corpuscular Hgb 22.8 pg (27.0-32.0); Mean Corpuscular Volume 76.3 fL (81-99); Mean Platelet Vol. 12.9 fl (6.2-12.0); Monocyte# 0.86 X10^3/uL; Monocyte% 8.2 % (0-10); NRBC Flagged by Analyzer 0 % (0-5); Neutrophil # 6.96 X10^3/uL (2.7-7.7); Neutrophil % 66.1 % (47-70); Platelet Count 222 K/mm3 (150-450); RBC Distribution Width CV 14.6 % (11.6-14.6); RBC Distribution Width SD 39.8 fl (35.1-43.9); Red Blood Count 4.69 M/mm3 (4.2-5.4); White Blood Count 10.5 K/mm3 (4.4-11.0)
[2022-12-19] VITALS (64 sets, daily range): BP systolic 64–124; BP diastolic 30–79; PULSE 53–78; RESP 16–18; TEMP 36.5–36.8; O2SAT 90–100
[2022-12-19] MEDS: fentaNYL-bupivacaine (epidural) 100 ML BAG EPIDURAL (01:50)
[2022-12-19 05:05] LABS: Chlamydia Trachomatis by PCR Negative (Negative); Neisserai gonorrhoeae by PCR Negative (Negative); Probe Check PASS; Sample Adequacy Control PASS; Specimen Processing Control PASS
[2022-12-19] MEDS: Oxytocin 15 Units/NS 250ml 15 UNITS/250 ML IV.SOLN 83 UNITS IV (05:58)
[2022-12-19] MEDS: Oxytocin 10 UNITS/ML Vial IM (05:59)
--- NOTE | 2022-12-19 06:10 | EX.PCM.OBRPT ---
Vaginal Delivery Findings Description of Procedure: Normal spontaneous vaginal delivery of a viable female infant. Vertex ARTIE. Head and shoulders delivered with ease. Cord clamped and cut. Baby handed off to patient. Placenta delivered via cord traction and fundal massage, intact. IM Pitocin and IV Pitocin given per protocol. First-degree midline perineal laceration noted and repaired in typical fashion. EBL 250 cc Apgars 9/9
[2022-12-19] MEDS: Ibuprofen 600 MG Tablet PO (17:04)
[2022-12-19] MEDS: Senna/Docusate Sodium 1 Tablet PO (17:05)
[2022-12-20 04:01] VITALS: BP 104/65; PULSE 62; RESP 16; TEMP 36.8; O2SAT 97
--- NOTE | 2022-12-20 07:03 | DS.PCM_ITS ---
Discharge Summary Date of Admission: 12/18/22 Date of Discharge: 12/20/22 Summary: Patient arrived on 12/18/2022 in labor. Subsequently delivered vaginally on 12/19/2022. Routine recovery. Discharge home on 12/20/2022 Meaningful Use Info Meaningful Use Diagnoses (Choose all that apply): None applicable Discharge Plan Admission Admit Date/Time: 12/18/22 21:48 Primary Reason for Your Visit: Labor Attending Provider: John Kay Primary Care Provider: Care Physician,Teri Primary Instructions Additional Instructions / Restrictions: Regular diet. Weightbearing as tolerated. Okay to shower. No intercourse for 4 to 6 weeks. Call if fevers, chills, chest pain, shortness of breath. Follow- up 4 to 6 weeks Discharge Orders/Prescriptions Prescriptions: No Action ferrous sulfate [Iron (ferrous sulfate)] 325 mg (65 mg iron) Tablet 325 mg PO 1XD 1 mg Tablet 1 tab PO DAILY Referrals / Follow Up: Care Physician,No Primary [Primary Care Provider] - Disposition Disposition (needs filled in before D/C Order can be placed): Home, Self Care
--- NOTE | 2022-12-20 07:04 | PN.OBGYN_ITS ---
Subjective Subjective No overnight complaints Objective Data Objective Data Vital Signs: Vital Signs Temp Pulse Resp BP Pulse Ox O2 Del Method 98.2 F 62 16 104/65 97 Room Air 12/20/22 04:01 12/20/22 04:01 12/20/22 04:01 12/20/22 04:01 12/20/22 04:01 12/20/22 04:01 Oxygen Delivery Method Room Air Weight: 231 lb 14.821 oz Body Mass Index (BMI) 38.5 Intake & Output: Intake and Output for Last 24 Hours 12/18/22 12/19/22 12/20/22 23:59 23:59 23:59 Intake Total 1744.17 / 1744.17 Output Total 1300 / 1300 Balance 444.17 / 444.17 Lab / Micro Data Result Diagrams: 12/18/22 23:40 Physical Exam Const alert, oriented x3, no apparent distress, average body habitus, healthy ap pearing and well nourished HEENT normocephalic and moist oral mucous membranes Eyes PERRL Neck full ROM Resp normal respiratory effort, no retractions and no use of accessory muscles GI GI Narrative: Soft, nontender, uterus firm and below umbilicus Extremity normal to inspection, full ROM and no clubbing, cyanosis or edema Neuro moves all extremities and no focal motor deficits Psych mental status grossly normal, affect normal, speech normal and activity/motor behavior normal Assessment & Plan (1) Vaginal delivery: PLAN: day 1. Breast-feeding. Pain well controlled. Okay to discharge home today if okay with certified legal secretary specialist
[2022-12-20 08:00] VITALS: BP 115/59; PULSE 61; RESP 16; TEMP 36.3
[2022-12-20] MEDS: Ibuprofen 600 MG Tablet PO (08:35)
[2022-12-20] MEDS: Senna/Docusate Sodium 1 Tablet PO (09:08)
== END 2022-12-20 10:00 | disposition home or self-care (01) | DRG 560 ==
LOC: WPOUT 22:10 → WP 22:11
PROVIDERS: Admitting Provider Obstetrics & Gynecology; Visit Provider Obstetrics & Gynecology
DX: O99.214 Obesity complicating childbirth (principal); Z37.0 Single live birth; E66.01 Morbid (severe) obesity due to excess calories; O70.0 First degree perineal laceration during delivery; Z3A.38 38 weeks gestation of pregnancy; Z87.891 Personal history of nicotine dependence
CPT/HCPCS: 59025; 59050; 76815; 85025; 86850; 86900; 86901; 87491; 87591; 99221; J7120; G0378

== ENCOUNTER → 2023-06-03 | Outpatient (CLI) | payer MEDICAID, SELFPAY ==
[2023-06-03 12:28] LABS: HIV - WCH Non-Reactive (Nonreactive); Hepatitis B Surface Antibody Non-Reactive; Syphilis Antibodies Non-reactive
[2023-06-04 07:08] LABS: HEPATITIS B SURFACE AG Negative (Negative); Hep C Antibodies Non Reactive (Non Reactive); Hepatitis A AB, Total Negative (Negative); Hepatitis A IgM Antibody Negative (Negative); Hepatitis B Core AB IgM Negative (Negative)
[2023-06-10 00:07] LABS: HPV APTIMA, High Risk Positive (Negative); HPV Genotype 16, Aptima Negative (Negative); HPV Genotype 18,45 Aptima Negative (Negative)
== END | disposition home or self-care (01) ==
PROVIDERS: Visit Provider Nurse Practitioner Women's Health
DX: Z01.419 Encounter for gynecological examination (general) (routine) without abnormal findings (principal); Z11.3 Encounter for screening for infections with a predominantly sexual mode of transmission
CPT/HCPCS: 36415; 80074; 86703; 86706; 86708; 86780; 87624; 88175; G0145

== ENCOUNTER → 2023-06-10 | Outpatient (CLI) | payer MEDICAID, SELFPAY ==
--- NOTE | 2023-06-10 14:16 | BI_ITS ---
MAMMOGRAPHY - BILATERAL DIAGNOSTIC REASON FOR EXAM: Female, 32 years old. Palpable lump in the inferior lateral deep aspect of the left breast. PERTINENT HISTORY: Non-contributory. TECHNIQUE: Digital bilateral breast baljinder (3D mammographic acquisition) in the CC and MLO projections. 2-D mediolateral oblique (MLO) and craniocaudad (CC) views of both breasts were obtained. CAD: Full Field Digital Mammography with Computer Added Detection was performed. COMPARISON: None. Baseline examination. FINDINGS: Breast Composition: The breasts are heterogeneously dense, which may obscure small masses. There are no dominant masses or suspicious calcifications. No other significant abnormalities are identified. BI/DIAG MAMM W/CAD, BILAT IMPRESSION: Negative diagnostic mammogram. With the patient''s history of a palpable lump in the inferior deep lateral aspect of the left breast, correlation with ultrasound is recommended. ASSESSMENT CATEGORY: BIRADS Category 0: Incomplete. Need additional imaging evaluation. A letter regarding these results will be sent to the patient by the facility within 30 days. Approximately 10% of breast cancers are not detected by mammography. A normal mammogram should not delay biopsy of a clinically suspicious abnormality. Electronically Signed: Aly Segovia MD at 15:23 EDT ,
--- NOTE | 2023-06-10 14:17 | US_ITS ---
STUDY: ULTRASOUND BREAST - LEFT REASON FOR EXAM: Female, 32 years old. Palpable lump left breast. TECHNIQUE: Axial and longitudinal images of the LEFT breast were performed with a high resolution ultrasound transducer. # OF IMAGES: 14 COMPARISON: Comparison is made with prior mammogram done earlier in the day. FINDINGS: LEFT Breast: The outer inferior aspect of the left breast was examined with ultrasound. No sonographic abnormality is seen. US/Breast Limited Unilateral IMPRESSION: No sonographic abnormality is seen. ASSESSMENT CATEGORY: BIRADS Category 1: Negative. A letter regarding these results will be sent to the patient by the facility within 30 days. Electronically Signed: Aly Segovia MD at 15:10 EDT ,
== END | disposition home or self-care (01) ==
LOC: OPBI 14:14
PROVIDERS: Referring Provider Nurse Practitioner Women's Health; Visit Provider Nurse Practitioner Women's Health
DX: N63.23 Unspecified lump in the left breast, lower outer quadrant (principal)
CPT/HCPCS: 77062; 76642; 77066; G0279

== ENCOUNTER → 2023-07-01 | Outpatient (CLI) | payer MEDICAID, SELFPAY ==
[2023-07-01 12:12] LABS: HIV - WCH Non-Reactive (Nonreactive); Syphilis Antibodies Non-reactive
[2023-07-02 08:10] LABS: HEPATITIS B SURFACE AG Negative (Negative); Hep B Surface Antibodies Reactive (.); Hepatitis B Core Ab Total Negative (Negative)
== END | disposition home or self-care (01) ==
LOC: WOBLAB 09:50
PROVIDERS: Visit Provider Obstetrics & Gynecology
DX: Z11.3 Encounter for screening for infections with a predominantly sexual mode of transmission (principal)
CPT/HCPCS: 36415; 86703; 86704; 86705; 86706; 86707; 86780; 86803; 87340; 87350

== ENCOUNTER → 2025-01-02 | Outpatient (CLI) | payer MEDICAID, SELFPAY ==
[2025-01-07 13:07] LABS: HPV APTIMA, High Risk Negative (Negative)
== END | disposition home or self-care (01) ==
LOC: LABSPEC 15:58
PROVIDERS: Referring Provider Nurse Practitioner Family; Visit Provider Nurse Practitioner Family
DX: Z12.4 Encounter for screening for malignant neoplasm of cervix (principal)
CPT/HCPCS: 87624; 88175; G0145